=== PATIENT | female | born 1990 | race Caucasian/White ===

== ENCOUNTER 2023-03-07 19:44 | Emergency (ER) | payer OTHER, SELFPAY ==
[2023-03-07] VITALS (25 sets, daily range): BP systolic 128–130; BP diastolic 75–78; PULSE 44–83; RESP 13–23; O2SAT 98–99; BMI 26.3
--- NOTE | 2023-03-07 20:32 | PC.NURSE ---
Patient c/o center chest pain for 6 months that goes away and comes back. patient has appointment with pcp tomorrow but states she was worried because it didnt go away today. patient stats pain radiates into her back between shoulder blades. denies any recent illness. no other compliants. pain worsens when lifting heavy things at work. ekg obtained and given to physician normal sinus
--- NOTE | 2023-03-07 20:33 | ED_ITS ---
HPI - Chest Pain General Chief Complaint: Chest Pain Stated Complaint: CHEST PAIN Time Seen by Provider: 03/07/23 20:26 Source: patient Mode of arrival: walk-in Limitations: no limitations History of Present Illness HPI narrative: presents complaining of chest pain for past 6 months. superior substernal pain. episodic sharp pain followed by chest ache. first started out as maybe twice per week. Has increased in frequency. Sharp pain this AM. Still has persistent chest tightness sensation. No dyspnea or nausea but did feel light headed once. No family history of heart disease. Does have heart burn which she feels is getting worse. Takes TUMs for heart burn. Started using ibuprofen the past week for heel pain. MD complaint: Reports chest pain Related Data Home Medications Medication Instructions Recorded Confirmed ibuprofen 200 mg capsule 400 mg PO Q8H 03/07/23 03/07/23 Allergies Allergy/AdvReac Type Severity Reaction Status Date / Time No Known Drug Allergies Allergy Verified 03/07/23 20:01 Review of Systems ROS Status of ROS 10 or more systems reviewed and unremark able except as noted in history and below [facility] Social History Smoking status: Never smoker Exam Constitutional Vital Signs, click to edit/add: Last Vital Signs Pulse 68 03/07/23 23:20 Resp 19 03/07/23 23:20 BP 128/75 03/07/23 19:58 Pulse Ox 99 03/07/23 20:00 O2 Del Method Room Air 03/07/23 19:52 Common normals: no apparent distress, average body habitus, oriented x3, no limitations, healthy appearing, alert and well nourished Eye Common normals: EOMs intact bilaterally and conjunctivae normal Chest Common normals: inspection of chest normal and palpation of chest normal Respiratory Common normals: normal respiratory effort, no retractions, no use of accessory muscles and clear to auscultation bilaterally Cardio Common normals: regular rate, regular rhythm, S1 normal heart sound and S2 normal heart sound GI Common normals: Normal to inspection, nondistended, normoactive bowel sounds present, soft to palpation and non-tender Extremity Common normals: normal to inspection and full ROM Neuro Common normals: oriented x3, CN's II-XII intact bilaterally, moves all extremities and no focal motor deficits Psych Appearance: grossly normal Course Vital Signs Vital signs: Vital Signs Pulse Rate 60 03/07/23 19:52 Respiratory Rate 14 03/07/23 19:52 Blood Pressure 128/75 03/07/23 19:52 Pulse Oximetry 98 03/07/23 19:52 Oxygen Delivery Method Room Air 03/07/23 19:52 Pulse Rate 68 03/07/23 23:20 Respiratory Rate 19 03/07/23 23:20 Blood Pressure 128/75 03/07/23 19:58 Pulse Oximetry 99 03/07/23 20:00 Oxygen Delivery Method Room Air 03/07/23 19:52 MDM - Chest Pain MDM Narrative Medical decision making narrative: patient presents with recurrent episodes of chest pain for 6 months. Describes sharp chest pain. Demonstrates how she can be asymptomatic and then get up from sitting position or just change position and experinece sharp pain followed by tightness . episode of chest pain about 5pm tonight that resolved . Tightness remains. also has GERD that she treats with TUMS. No family history of heart disease. Patient treated with GI cocktail and there was no difference in her sensation of chest tightness. She does not feel short of breath. d-dimer neg, serial troponin neg. normal cxray. During time of observation in the department her heart rate decreased into upper 40s. She was only aware of it because of the monitor. She is discharged home in stable condition with working diagnosis of atypical chest pain and bradycardia and advised to follow up for her doctor to continue workup as an out patient Lab Data Labs: Lab Results 03/07/23 03/07/23 Range/Units 20:42 22:45 WBC 7.4 (4.0-11.0) 10^3/uL RBC 4.02 L (4.20-5.40) 10^6/uL Hgb 11.9 L (12.0-16.0) g/dL Hct 35.9 L (36.0-48.0) % MCV 89.3 (81.0-99.0) fL MCH 29.6 (26.7-34.0) pg MCHC 33.1 (29.9-35.2) g/dL RDW 11.9 (11.0-15.0) % Plt Count 241 (150-450) 10^3/uL MPV 9.6 (9.5-13.5) fL Neut % (Auto) 41.7 L (43.0-75.0) % Lymph % (Auto) 44.1 (20.5-60.0) % [place] % (Auto) 7.2 (1.7-12.0) % Eos % (Auto) 5.8 (0.9-7.0) % Baso % (Auto) 1.1 (0.2-2.0) % Neut # (Auto) 3.1 (1.4-6.5) 10^3/uL Lymph # (Auto) 3.3 (1.2-3.8) 10^3/uL [place] # (Auto) 0.5 (0.3-0.8) 10^3/uL Eos # (Auto) 0.4 (0.0-0.7) 10^3/uL Baso # (Auto) 0.1 (0.0-0.1) 10^3/uL Abs Immat Gran (auto) 0.01 (0.00-0.03) 10^3/uL Imm/Tot Granulo (auto) 0.1 (0.0-0.5) % D-Dimer <0.19 (<=0.59) mg/L FEU Sodium 134 L (136-145) mmol/L Potassium 3.5 (3.5-5.1) mmol/L Chloride 106 (98-107) mmol/L Carbon Dioxide 29.8 (21.0-32.0) mmol/L Anion Gap 1.7 BUN 15.0 (7.0-18.0) mg/dL Creatinine 0.93 (0.55-1.02) mg/dL Est GFR ( Amer) >60 (>=60) Est GFR (Non-Af Amer) >60 (>=60) BUN/Creatinine Ratio 16.1 Glucose 87 (74-106) mg/dL Calcium 9.4 (8.5-10.1) mg/dL Total Bilirubin 0.3 (0.2-1.0) mg/dL AST 17 (15-37) U/L ALT 20 (14-59) U/L Alkaline Phosphatase 48 (46-116) U/L Troponin I High Sens 5.2 5.0 (4.0-51.3) pg/mL Total Protein 7.0 (6.4-8.2) g/dL Albumin 3.8 (3.4-5.0) g/dL Globulin 3.2 g/dL Albumin/Globulin Ratio 1.2 Discharge Plan Discharge Chief Complaint: Chest Pain Clinical Impression: Atypical chest pain, Bradycardia Patient Disposition: Home, Self-Care Prescriptions / Home Meds: No Action ibuprofen 200 mg capsule 400 mg PO Q8H Instructions: Chest Pain (ED), Bradycardia (ED) Additional Instructions: follow up with your doctor in next 2-3 days for heart monitor Stand Alone Forms: Portal Instructions Referrals: Physician,Non-Staff, MD [Physician] - 1 week
--- NOTE | 2023-03-07 20:37 | ECG_ITS ---
[facility] Test Date: 2023-03-07 Pat Name: MAGDALENO BELLA Department: Room: - Gender: Female [employer]: : 1990 Requested By: [id number] Order Number: [id number] Reading MD: EUSEBIO DEWEY Measurements Intervals [place] Rate: 68 P: 63 AR: 132 QRS: 73 QRSD: 94 T: 43 QT: 374 QTc: 391 Interpretive Statements 1100 Sinus rhythm 2420 RSR (QR) in lead V1/V2, consistent with right ventricular conduction delay 9130 borderline ECG Compared to ECG 06/17/2018 13:19:39 No significant changes Electronically Signed On 03-08-2023 7:11:23 EST by EUSEBIO DEWEY
--- NOTE | 2023-03-07 20:37 | XR_ITS ---
The [address] [address] Patient Name: MAGDALENO BELLA MRN: [id number] date: 1990 Sex: F Assigned Patient Location: ER Current Patient Location: ER Accession/Order Number: [id number] Exam Date: 03/07/2023 20:45 Report Date: 03/07/2023 21:09 At the request of: CIRILO DC Procedure: XR chest 1V EXAM: XR chest 1V TECHNIQUE: Single AP view chest HISTORY: chest pain COMPARISON: None. FINDINGS: The heart and mediastinum are unremarkable. The lung galindo are clear of any acute infiltrate, effusion or mass. No acute bony abnormality. Small calcific granuloma in the right upper lung field. XR/XR chest 1V IMPRESSION: No acute pulmonary disease. Electronically authenticated by: WINTER CAMPBELL Date: 03/07/2023 21:09
[2023-03-07 20:48] LABS: Basophils Absolute Auto 0.1 10^3/uL (0.0-0.1); Basophils Percent Auto 1.1 % (0.2-2.0); Eosinophils Absolute Auto 0.4 10^3/uL (0.0-0.7); Eosinophils Percent Auto 5.8 % (0.9-7.0); Hematocrit 35.9 % (36.0-48.0); Hemoglobin 11.9 g/dL (12.0-16.0); Immature Granulocytes Abs Auto 0.01 10^3/uL (0.00-0.03); Immature Granulocytes Pct Auto 0.1 % (0.0-0.5); Lymphocytes Absolute Auto 3.3 10^3/uL (1.2-3.8); Lymphocytes Percent Auto 44.1 % (20.5-60.0); Mean Corpuscular HGB Conc 33.1 g/dL (29.9-35.2); Mean Corpuscular Hemoglobin 29.6 pg (26.7-34.0); Mean Corpuscular Volume 89.3 fL (81.0-99.0); Mean Platelet Volume 9.6 fL (9.5-13.5); Monocytes Absolute Auto 0.5 10^3/uL (0.3-0.8); Monocytes Percent Auto 7.2 % (1.7-12.0); Neutrophils Absolute Auto 3.1 10^3/uL (1.4-6.5); Neutrophils Percent Auto 41.7 % (43.0-75.0); Platelet Count 241 10^3/uL (150-450); Red Blood Count 4.02 10^6/uL (4.20-5.40); Red Cell Distribution Width 11.9 % (11.0-15.0); White Blood Count 7.4 10^3/uL (4.0-11.0)
[2023-03-07] MEDS: lidocaine HCL 15 ML, MAG HYDROX/ALUMINUM HYD/SIMETH 30 ML, HYOSCYAMINE SULFATE 0.25 MG PO (20:53)
[2023-03-07 21:03] LABS: Alanine Aminotransferase 20 U/L (14-59); Albumin Globulin Ratio 1.2; Albumin Level 3.8 g/dL (3.4-5.0); Alkaline Phosphatase 48 U/L (46-116); Anion Gap 1.7; Aspartate Amino Transferase 17 U/L (15-37); BUN Creatinine Ratio 16.1; Bilirubin Total 0.3 mg/dL (0.2-1.0); Calcium 9.4 mg/dL (8.5-10.1); Carbon Dioxide 29.8 mmol/L (21.0-32.0); Chloride 106 mmol/L (98-107); D Dimer <0.19 mg/L FEU (<=0.59); Estimated GFR (African America >60 (>=60); Estimated GFR (Non-African Ame >60 (>=60); Globulin 3.2 g/dL; Glucose 87 mg/dL (74-106); Potassium 3.5 mmol/L (3.5-5.1); Sodium 134 mmol/L (136-145)
[2023-03-07 21:05] LABS: Troponin I High Sensitivity 5.2 pg/mL (4.0-51.3)
== END 2023-03-07 23:50 | disposition home or self-care (01) ==
PROVIDERS: Emergency Provider Internal Medicine; PCP Nurse Practitioner Family
DX: R07.89 Other chest pain (principal); R00.1 Bradycardia, unspecified; K21.9 Gastro-esophageal reflux disease without esophagitis
CPT/HCPCS: 36415; 71045; 80053; 84484; 85025; 85378; 93005; 99285